=== PATIENT | male | born 1960 | race Caucasian/White ===

== ENCOUNTER 2023-03-29 10:30 | Day surgery (SDC) | payer OTHER ==
[2023-03-25 12:41] LABS: Absolute Lymphocytes (CBC) 2.3 K/uL (0.7-4.9); Hematocrit 43.5 % (39.6-49.0); Lymphocytes % 30.7 % (15.3-44.8); MCV 86.3 fL (80-100); MPV 8.9 fL (7.6-11.3); RBC Red Blood Cell Count 5.05 M/uL (4.33-5.43)
[2023-03-25 13:00] LABS: Protime INR 0.88
[2023-03-25 13:44] LABS: Potassium 4.1 mEq/L (3.5-5.1)
--- NOTE | 2023-03-27 14:12 | EKG ---
Test Date: 2023-03-25 Test Time: 12:21:02 Director Of Reservations: BONNIE MEASUREMENT RESULTS: Intervals: Rate: 83 RI: 138 QRSD: 88 QT: 388 QTc: 455 [place]: P: 67 RI: 138 QRS: 14 T: 35 INTERPRETIVE STATEMENTS: Normal sinus rhythm Nonspecific T wave abnormality Abnormal ECG Compared to ECG 02/22/2023 12:14:06 No significant changes Electronically Signed On 03-27-23 14:09:20 CDT by Moiz Chaudhary
[~2023-03-29 10:30] MED LIST: NA CHLORIDE 0.9% 500 ML ONE
[2023-03-29 11:05] VITALS: TEMP 98
[2023-03-29] MEDS ORDERED: CLOPIDOGREL 75 MG TABLET ONE (11:47)
[2023-03-29] MEDS ORDERED: VERAPAMIL HCL 10 MG/4 ML VIAL IV ONE (11:47)
[2023-03-29] MEDS ORDERED: HEPARIN 5000 UNIT/ML 1 ML VIAL ONE (11:47)
[2023-03-29] MEDS ORDERED: MIDAZOLAM HCL 2 MG/2 ML INJ ONE (11:47)
[2023-03-29] MEDS ORDERED: FENTANYL CITR 100 MCG/2 ML ONE (11:47)
[2023-03-29] MEDS ORDERED: NITROGLYCERIN 100 MCG/ML SYR (for cath lab use only) IV ONE (11:48)
[2023-03-29] MEDS ORDERED: HEPARIN 10,000 UNIT/10 ML VIAL IV ONE (11:48)
[2023-03-29] MEDS ORDERED: NITROGLYCERIN/D5W 25 MG/250 ML BTL IV ONE (11:48)
[2023-03-29] MEDS ORDERED: ATROPINE SULF 1 MG/10 ML SYR IV ONE (11:48)
[2023-03-29] MEDS ORDERED: LIDOCAINE 1% 20 ML MDV ONE (13:00)
[2023-03-29] MEDS ORDERED: Phenylephrine HCl 10 MG/ML 1 ML VIAL ONE (13:05)
[2023-03-29] MEDS ORDERED: NA CHLORIDE 0.9% 100 ML ONE (13:06)
[2023-03-29 16:59] VITALS: BP 116/77; O2SAT 100
--- NOTE | 2023-03-29 22:25 | OP ---
Date of Procedure: 03/29/2023 Surgeon: DIPIKA CISNEROS Procedures Performed: 1.Selective coronary angiogram. 2.Percutaneous coronary intervention of severe first obtuse marginal branch. I used a 2.5 x 16 mm S ynergy drug-eluting stent distally and it is overlapped with a 2.75 x 12 mm Synergy drug-eluting sten t proximally. Excellent angiographic results with 0% residual stenosis and HOSEA-3 flow. Indication: Coronary artery disease with angina. Access: 1.Right femoral artery 6-Martiniquais closed with Angio-Seal. 2.Right radial artery 6-Martiniquais closed with TR band. Complications: None. Estimated Blood Loss: Bleeding less than 10 mL. Anesthesia: Total sedation time was 35 minutes, used fentanyl and Versed. Description Of Procedure: After risks, benefits, and alternatives were explained, the patient agreed to procedure and signed informed consent. The patient was brought into the cardiac catheterization laboratory, prepped and draped in sterile fashion. Then, I accessed the right radial artery using pe diatric micropuncture kit and placed 6-Martiniquais Slender sheath. I could not take any wire due to sever e radial spasm, so I aborted that access and then using ultrasound guidance and micropuncture kit and fluoroscopy, I accessed right common femoral artery and placed a 6-Martiniquais Schlater sheath and I took a 6-Martiniquais EBU 3.5 guide into the aortic root, engaged left main, took standard views and then gave systemic heparin to assure ACT level of above 250 and then took short Runthrough wire into the left m ain and the left circumflex and then to OM1 branch, passing the area of stenosis. Lesions responded to balloon angioplasty very well, expanded very well and then I placed a 2.5 x 16 mm Synergy drug-elu ting stent distally. There was significant disease proximally still, so I placed another 2.75 x 12 m m drug-eluting stent proximally to cover the proximal lesion overlapping without a stent. Excellent angiographic results. The final angiogram was satisfactory. Then, we removed the wire and the guide and the sheath and placed 6-Martiniquais Angio-Seal for closure for hemostasis. Findings: 1.Left main was normal. 2.LAD: Normal proximal LAD, normal diagonal branches and mid LAD stent is widely patent. Distal LA D becomes small with no significant disease. 3.Left circumflex: Large OM1 branch with proximal 70 and the mid to distal 80% stenosis status post successful PCI as above. Rest of the circ is normal. 4.RCA was not injected, as noted to be normal. Conclusion: 1.Severe first obtuse marginal branch stenosis status post successful percutaneous coronary interven tion as above. 2.Patent left anterior descending artery stent and no other significant coronary artery disease else where. Plan: Aspirin, Plavix, and statin. Follow up with me in the office in 4 weeks. SR/MODL Voice ID: [id number] Report ID: [id number]
== END 2023-03-29 16:59 | disposition home or self-care (01) ==
LOC: CCL 10:30
PROVIDERS: ATTEND Internal Medicine
DX: I25.119 Atherosclerotic heart disease of native coronary artery with unspecified angina pectoris (principal); I70.212 Atherosclerosis of native arteries of extremities with intermittent claudication, left leg; I10 Essential (primary) hypertension; R09.89 Other specified symptoms and signs involving the circulatory and respiratory systems; E11.9 Type 2 diabetes mellitus without complications; Z95.5 Presence of coronary angioplasty implant and graft; Z87.891 Personal history of nicotine dependence; Z79.84 Long term (current) use of oral hypoglycemic drugs
CPT/HCPCS: 93005; 85025; 80048; 36415; 85610; 82947; 85347; 85730; 93454; 76937; C1893; C1760; Q9967; G0269; C1725; C9600; J1644; J2001; J2370 ×2; J2250; J3010; J7060; J7040; J0461